=== PATIENT | female | born 1970 | race Two or more races ===

== ENCOUNTER 2017-12-01 04:50 | Emergency (ER) | payer MEDICAID, OTHER ==
[~2017-12-01] VITALS: Ht 154.9 cm; Wt 65.8 kg
[~2017-12-01 04:50] MED LIST: DOXE10CA2 PO
[2017-12-01 05:00] VITALS: BP 133/85
[2017-12-01] MEDS ORDERED: TRAMADOL HCL 50 MG TABLET ONE (05:28)
[2017-12-01] MEDS ORDERED: TRAMADOL HCL 50 MG TABLET PO ONE (05:30)
== END 2017-12-01 07:10 | disposition home or self-care (01) ==
LOC: ER 04:51
DX: S92.511A Displaced fracture of proximal phalanx of right lesser toe(s), initial encounter for closed fracture (principal); W22.8XXA Striking against or struck by other objects, initial encounter; Y93.89 Activity, other specified; Y92.89 Other specified places as the place of occurrence of the external cause; Y99.8 Other external cause status
CPT/HCPCS: 29515; 73630; 99284; A4606; Z7610

== ENCOUNTER 2018-05-23 04:05 | Emergency (ER) | payer OTHER ==
[~2018-05-23] VITALS: Ht 162.6 cm; Wt 60.3 kg
[2018-05-23 04:16] VITALS: BP 122/78
--- NOTE | 2018-05-23 05:00 | NUR ---
CALLED FOR ROOM ASSIGNMENT AGAIN; NOT IN LOBBY. INFORMED "PT IN RESTROOM"
--- NOTE | 2018-05-23 05:56 | NUR ---
STILL NOT IN LOBBY
--- NOTE | 2018-05-23 06:06 | NUR ---
INFORMED BY ADMITTING "PT IS NOT YET BACK IN THE LOBBY; WILL LET YOU KNOW WHEN SHE RETUTRNS"
== END 2018-05-23 06:58 | disposition left against medical advice (07) ==
LOC: ER 04:06
DX: Z53.21 Procedure and treatment not carried out due to patient leaving prior to being seen by health care provider (principal)
CPT/HCPCS: A4606; Z7610

== ENCOUNTER 2020-07-29 20:44 | Emergency (ER) | payer OTHER ==
[~2020-07-29] VITALS: Ht 162.6 cm; Wt 61.2 kg
[2020-07-29 21:27] LABS: BILIRUBIN,URINE NEGATIVE (NEGATIVE); BLOOD, URINE NEGATIVE Ery/uL (NEGATIVE); COLOR,URINE YELLOW (YELLOW); LEUKOCYTE ESTERASE ,URINE NEGATIVE (NEGATIVE); NITRITE, URINE NEGATIVE (NEGATIVE); PROTEIN,URINE NEGATIVE (NEGATIVE); UGLUCOSE NEGATIVE (NEGATIVE); UROBILINOGEN,URINE 0.2 EU/dL (0.2)
--- NOTE | 2020-07-29 21:31 | NUR ---
BIBS FROM HOME TO ER BED 1. AAOX4. NOT IN RESP DISTRESS. AMBULATORY. CAME IN FOR A LEFT FLANK PAIN SINCE YESTERDAY. PAIN IS RATED 8/10 SHARP PRESENT WEHN MOVING AND AGRREVATED BY MOVING. DENIES ANY PAIN OR BURNING WHEN URINATING. DENIES ANY TRAUMA. ORDERS RECEIVED NOTED AND CARRIED OUT. URINE IS COLLECTED AND SENT TO LAB. IV LINE ESTABLISHED ON RFA 22G. BLOOD DRAWN AND GIVEN TO RADIATOR FITTER AT BEDSIDE. PT IS GOING TO CT ON [facility]
[2020-07-29 21:34] LABS: BASOPHILS # (AUTO) 0.1 /CMM (0.0-0.2); BASOPHILS % (AUTO) 1.2 % (0.0-2.0); HEMATOCRIT 37 % (33-45); HEMOGLOBIN 12.4 g/dL (11.5-14.8); LYMPHOCYTES # (AUTO) 1.5 /CMM (0.8-4.8); LYMPHOCYTES % (AUTO) 35.1 % (20.0-44.0); MEAN CORPUSCULAR HGB CONC 33 g/dl (31.0-36.0); MEAN CORPUSCULAR VOLUME 92 fL (82-100); MONOCYTES # (AUTO) 0.5 /CMM (0.1-1.30); MONOCYTES % (AUTO) 12.6 % (2.0-12.0); NEUTROPHILS % (AUTO) 48.1 % (43.0-81.0); PLATELET COUNT (AUTO) 254 /CMM (150-450); RED BLOOD CELL COUNT(AUTO) 4.05 MIL/uL (4.0-5.2); WHITE BLOOD COUNT (AUTO) 4.2 K/uL (4.3-11.0)
[2020-07-29 22:06] LABS: CALCIUM, SERUM 8.5 mg/dL (8.5-10.1)
[2020-07-29 22:13] LABS: ALBUMIN 3.2 g/dL (3.4-5.0); BILIRUBIN,DIRECT 0.1 mg/dL (0.0-0.2); BILIRUBIN,TOTAL 0.2 mg/dL (0.2-1.0); TOTAL PROTEIN, SERUM 7.1 g/dL (6.4-8.2)
[2020-07-29] MEDS ORDERED: KETOROLAC TROMETHAMINE INJ 30 MG/ML VIAL ONE (22:24)
[2020-07-29] MEDS: KETOROLAC TROMETHAMINE INJ 30 MG/ML VIAL IV ONE (22:29)
[2020-07-29] MEDS: IV NS 0.9% 1,000 ML BAG IV ONE (22:29)
--- NOTE | 2020-07-29 22:35 | NUR ---
Patient discharged to home in stable condition. Written and verbal after care instructions given. Patient verbalizes understanding of instruction.IV removed. Catheter intact and site benign. Pressure and 4x4 applied to site. No bleeding noted. Pt ambulatory with a steady gait
[2020-07-29 23:34] VITALS: BP 123/78
== END 2020-07-29 22:37 | disposition home or self-care (01) ==
LOC: ER 20:49
DX: S39.012A Strain of muscle, fascia and tendon of lower back, initial encounter (principal); K59.00 Constipation, unspecified; Z98.890 Other specified postprocedural states; X58.XXXA Exposure to other specified factors, initial encounter; Y93.89 Activity, other specified; Y92.89 Other specified places as the place of occurrence of the external cause; Y99.8 Other external cause status
CPT/HCPCS: 36415; 74176; 80048; 80076; 81001; 83690; 85025; 87086; 96374; 99284; J1885; J7030; 81000-TC

== ENCOUNTER 2021-07-16 18:51 | Emergency (ER) | payer OTHER, MEDICAID ==
[~2021-07-16] VITALS: Ht 162.6 cm; Wt 61.2 kg
--- NOTE | 2021-07-16 19:32 | NUR ---
BIBS C/O "SHARP" R GROIN PAIN AND R FLANK X 3 DAYS. TOOK PRESCRIBED NORCOS WITH NO RELIEF. PT CHANGED INTO A GOWN AND PLACED ON A MONITOR ALL VITALS STABLE.
[2021-07-16] MEDS ORDERED: KETOROLAC TROMETHAMINE 15 MG/ML VIAL ONE (19:48)
[2021-07-16] MEDS ORDERED: ONDANSETRON HCL/PF 4 MG/2 ML VIAL ONE (19:48)
--- NOTE | 2021-07-16 19:52 | NUR ---
BLOOD TAKEN AND SENT TO LAB.
--- NOTE | 2021-07-16 19:53 | NUR ---
URINE COLLECTED AND SENT TO LAB
[2021-07-16 19:59] LABS: BASOPHILS % (AUTO) 0.6 % (0.0-2.0); EOSINOPHILS % (AUTO) 3.8 % (0.0-6.0); HEMATOCRIT 39 % (33-45); HEMOGLOBIN 13.1 g/dL (11.5-14.8); LYMPHOCYTES # (AUTO) 1.5 K/uL (0.8-4.8); LYMPHOCYTES % (AUTO) 37.1 % (20.0-44.0); MEAN CORPUSCULAR HGB CONC 33 g/dl (31.0-36.0); MEAN CORPUSCULAR VOLUME 92 fL (82-100); MONOCYTES # (AUTO) 0.4 K/uL (0.1-1.30); MONOCYTES % (AUTO) 10.5 % (2.0-12.0); NEUTROPHILS # (AUTO) 1.9 K/uL (1.8-8.9); PLATELET COUNT (AUTO) 223 K/uL (150-450); RED BLOOD CELL COUNT(AUTO) 4.25 MIL/uL (4.0-5.2)
[2021-07-16 20:00] LABS: BILIRUBIN,URINE SMALL (NEGATIVE); COLOR,URINE YELLOW (YELLOW); LEUKOCYTE ESTERASE ,URINE NEGATIVE (NEGATIVE); NITRITE, URINE NEGATIVE (NEGATIVE); PH,URINE 5.5 (5.0-8.0); PROTEIN,URINE NEGATIVE (NEGATIVE); UGLUCOSE NEGATIVE (NEGATIVE); UROBILINOGEN,URINE 0.2 EU/dL (0.2)
[2021-07-16] MEDS ORDERED: KETOROLAC TROMETHAMINE INJ 30 MG/ML VIAL IV ONE (20:00)
[2021-07-16] MEDS ORDERED: IV NS 0.9% 1,000 ML BAG IV ONE (20:00)
[2021-07-16] MEDS ORDERED: ONDANSETRON HCL/PF 4 MG/2 ML VIAL IVP ONE (20:00)
--- NOTE | 2021-07-16 20:00 | NUR ---
PT TAKEN TO CT
[2021-07-16 20:09] LABS: BACTERIA,URINE RARE /HPF (None Seen); MUCUS,URINE Few /LPF (None Seen)
--- NOTE | 2021-07-16 20:12 | NUR ---
RETURNED FROM CT
--- NOTE | 2021-07-16 20:56 | NUR ---
CALLED [facility] FOR CXRAY READ
[2021-07-16 21:26] LABS: ALBUMIN 3.8 g/dL (3.4-5.0); BILIRUBIN,DIRECT 0.1 mg/dL (0.0-0.2); BILIRUBIN,TOTAL 0.3 mg/dL (0.2-1.0); CREATININE 0.9 mg/dL (0.6-1.3); POTASSIUM 3.5 mmol/L (3.5-5.1); TOTAL PROTEIN, SERUM 7.6 g/dL (6.4-8.2)
[2021-07-16] MEDS ORDERED: POLY17PO4 PO (21:53)
--- NOTE | 2021-07-16 22:03 | NUR ---
Patient discharged to home in stable condition. Written and verbal after care instructions given. Patient verbalizes understanding of instruction.
[2021-07-16 22:04] VITALS: BP 145/93
== END 2021-07-16 22:04 | disposition home or self-care (01) ==
LOC: ER 18:55
DX: K59.00 Constipation, unspecified (principal); R10.31 Right lower quadrant pain; R91.1 Solitary pulmonary nodule; Z98.890 Other specified postprocedural states; Z79.899 Other long term (current) drug therapy
CPT/HCPCS: 36415; 71045; 74176; 80048; 80076; 81001; 82962; 83690; 85025; 93005; 96361; 96374; 96375; 99285; J1885; J2405; J7030

== ENCOUNTER 2021-09-05 10:20 | Emergency (ER) | payer MEDICAID, OTHER ==
[~2021-09-05] VITALS: Ht 162.6 cm; Wt 61.2 kg
[~2021-09-05 10:20] MED LIST changes: +POLY17PO4 PO
--- NOTE | 2021-09-05 10:22 | NUR ---
BIB FRIEND C/O FLANK PAIN AND DYSURIA, 8/10 ON PAIN SCALE. PT STATED SHE STARTED TO FEEL PAIN 2 WEEKS PRIOR, YESTERDAY IT STARTED TO INCREASE. DENIES NAUSEA AND VOMITING. VITALS ARE WITHIN NORMAL LIMITS BREATHING IS EVEN AND UNLABORED. URIEN WAS COLLECTED AND SNET. PT ATTACHED TO MONITOR. BLANKET WAS PROVIDED FOR COMFORT. DR NORRIS AT BEDSIDE.
[2021-09-05] MEDS ORDERED: IBUPROFEN 600 MG TABLET ONE (10:35)
[2021-09-05 10:55] LABS: BILIRUBIN,URINE NEGATIVE (NEGATIVE); COLOR,URINE YELLOW (YELLOW); LEUKOCYTE ESTERASE ,URINE SMALL (NEGATIVE); NITRITE, URINE NEGATIVE (NEGATIVE); PROTEIN,URINE 30 mg/dl (NEGATIVE); UGLUCOSE NEGATIVE (NEGATIVE); UROBILINOGEN,URINE 0.2 EU/dL (0.2)
[2021-09-05] MEDS ORDERED: IBUPROFEN 600 MG TABLET PO ONE (11:00)
--- NOTE | 2021-09-05 11:05 | NUR ---
DR NORRIS TALKING TO THE PATIENT
[2021-09-05] MEDS ORDERED: NITR100C6 PO (11:06)
[2021-09-05 11:19] LABS: BACTERIA,URINE Many /HPF (None Seen); SQUAMOUS EPITHELIAL CELL,UR Few /HPF (None Seen)
--- NOTE | 2021-09-05 11:34 | NUR ---
PT RESTING COMFORTABLY, VSS
[2021-09-05 12:02] VITALS: BP 131/86
--- NOTE | 2021-09-05 12:02 | NUR ---
Patient discharged to home in stable condition. Written and verbal after care instructions given. Patient verbalizes understanding of instruction.
== END 2021-09-05 12:03 | disposition home or self-care (01) ==
LOC: ER 10:24
DX: N39.0 Urinary tract infection, site not specified (principal); M54.9 Dorsalgia, unspecified; Z79.899 Other long term (current) drug therapy
CPT/HCPCS: 81001; 87086-TC; 87186-TC

== ENCOUNTER 2022-01-12 06:39 | Emergency (ER) | payer OTHER ==
[~2022-01-12] VITALS: Ht 162.6 cm; Wt 61.2 kg
[~2022-01-12 06:39] MED LIST changes: +NITR100C6 PO
[2022-01-12 06:55] VITALS: BP 128/67
--- NOTE | 2022-01-12 06:59 | NUR ---
PT BIBSELF C/O LEFT THUMB PAIN. PT AAOX4 BREATHING EVENLY AND UNLABORED. PT ATTACHED TO MONITOR AND POX. PT GIVEN BLANKET AND CALL LIGHT WITHIN REACH. MD AT BEDSIDE
--- NOTE | 2022-01-12 07:48 | NUR ---
PILOT CAPTAIN AT BEDSIDE
--- NOTE | 2022-01-12 08:35 | NUR ---
Patient discharged to home in stable condition. Written and verbal after care instructions given. Patient verbalizes understanding of instruction.
== END 2022-01-12 08:34 | disposition home or self-care (01) ==
LOC: ER 06:45
DX: S60.012A Contusion of left thumb without damage to nail, initial encounter (principal); Z79.899 Other long term (current) drug therapy; X58.XXXA Exposure to other specified factors, initial encounter; Y93.89 Activity, other specified; Y92.89 Other specified places as the place of occurrence of the external cause; Y99.8 Other external cause status
CPT/HCPCS: 73140-TC

== ENCOUNTER 2022-03-23 06:39 | Emergency (ER) | payer OTHER ==
[~2022-03-23] VITALS: Ht 162.6 cm; Wt 62.1 kg
[2022-03-23 06:52] VITALS: BP 142/97
[2022-03-23] MEDS ORDERED: TRIA60LO8 TP (07:11)
[2022-03-23] MEDS ORDERED: CETI-90 PO (07:11)
[2022-03-23] MEDS ORDERED: cetrizine 10 MG TABLET ONE (07:15)
[2022-03-23] MEDS ORDERED: cetrizine 10 MG TABLET PO ONE (07:30)
== END 2022-03-23 07:18 | disposition home or self-care (01) ==
LOC: ER 06:41
DX: S40.861A Insect bite (nonvenomous) of right upper arm, initial encounter (principal); Z79.899 Other long term (current) drug therapy; W57.XXXA Bitten or stung by nonvenomous insect and other nonvenomous arthropods, initial encounter; Y93.89 Activity, other specified; Y92.89 Other specified places as the place of occurrence of the external cause; Y99.8 Other external cause status

== ENCOUNTER 2022-11-23 12:40 | Emergency (ER) | payer OTHER ==
[~2022-11-23] VITALS: Ht 162.6 cm; Wt 61.2 kg
[~2022-11-23 12:40] MED LIST changes: +CETI-90 PO; +TRIA60LO8 TP
[2022-11-23 13:16] VITALS: BP 149/93
--- NOTE | 2022-11-23 13:16 | NUR ---
RIGHT FOOT PAIN,TRIPPED LAST NIGHT
[2022-11-23] MEDS ORDERED: KETOROLAC TROMETHAMINE INJ 60 MG/2 ML VIAL IM ONE (15:00)
[2022-11-23] MEDS ORDERED: KETOROLAC TROMETHAMINE INJ 30 MG/ML VIAL ONE (15:04)
[2022-11-23] MEDS ORDERED: TYL2T PO (15:10)
--- NOTE | 2022-11-23 15:15 | NUR ---
Patient discharged to home in stable condition. Written and verbal after care instructions given. Patient verbalizes understanding of instruction.
== END 2022-11-23 16:15 | disposition home or self-care (01) ==
LOC: ER 12:50
DX: S90.31XA Contusion of right foot, initial encounter (principal); Z79.899 Other long term (current) drug therapy; W01.0XXA Fall on same level from slipping, tripping and stumbling without subsequent striking against object, initial encounter; Y93.89 Activity, other specified; Y92.9 Unspecified place or not applicable; Y99.8 Other external cause status
CPT/HCPCS: 99283; 96372; 73630; J1885

== ENCOUNTER 2023-01-17 06:13 | Emergency (ER) | payer OTHER ==
[~2023-01-17] VITALS: Ht 162.6 cm; Wt 61.2 kg
[~2023-01-17 06:13] MED LIST changes: +TYL2T PO
[2023-01-17 06:32] VITALS: BP 141/86
--- NOTE | 2023-01-17 06:32 | NUR ---
pt bib d/t possible rt foot infection. states had boil and she popped it. safety measures in place, awaitng to be seen by .
--- NOTE | 2023-01-17 06:34 | NUR ---
pt seen by MD at bedside
[2023-01-17] MEDS ORDERED: KETO10TA2 PO (06:41)
[2023-01-17] MEDS ORDERED: CLIN300C12 PO (06:41)
[2023-01-17] MEDS ORDERED: KETOROLAC TROMETHAMINE INJ 30 MG/ML VIAL ONE (06:44)
[2023-01-17] MEDS: KETOROLAC TROMETHAMINE INJ 30 MG/ML VIAL IM ONE (06:55)
--- NOTE | 2023-01-17 06:55 | NUR ---
MD orders carried out. due meds given as ordered. Patient discharged to home in stable condition. Written and verbal after care instructions given. Patient verbalizes understanding of instruction.
== END 2023-01-17 06:59 | disposition home or self-care (01) ==
LOC: ER 06:13
DX: L03.115 Cellulitis of right lower limb (principal); Z79.899 Other long term (current) drug therapy
CPT/HCPCS: 99283; 96372; J1885

== ENCOUNTER 2024-02-05 06:27 | Emergency (ER) | payer OTHER ==
[~2024-02-05] VITALS: Ht 162.6 cm; Wt 62.1 kg
[~2024-02-05 06:27] MED LIST changes: +CLIN300C12 PO; +KETO10TA2 PO
[2024-02-05] MEDS ORDERED: ACETAMINOPHEN ES 500 MG TABLET ONE (06:44)
[2024-02-05] MEDS: ACETAMINOPHEN ES 500 MG TABLET PO ONE (06:45)
[2024-02-05 07:57] VITALS: BP 142/94; TEMP 98.1; O2SAT 98
== END 2024-02-05 07:57 | disposition home or self-care (01) ==
LOC: ER 06:27
DX: S09.8XXA Other specified injuries of head, initial encounter (principal); M54.2 Cervicalgia; W01.198A Fall on same level from slipping, tripping and stumbling with subsequent striking against other object, initial encounter; Y93.89 Activity, other specified; Y92.098 Other place in other non-institutional residence as the place of occurrence of the external cause; Y99.8 Other external cause status
CPT/HCPCS: 70450-TC; 72125-TC

== ENCOUNTER 2024-04-26 04:28 | Emergency (ER) | payer OTHER ==
[~2024-04-26] VITALS: Ht 160 cm; Wt 65.8 kg
[2024-04-26] MEDS ORDERED: ONDANSETRON 4 MG TAB.RAPDIS ONE (05:15)
[2024-04-26] MEDS ORDERED: IBUPROFEN 600 MG TABLET ONE (05:15)
[2024-04-26] MEDS: IBUPROFEN 600 MG TABLET PO ONE (05:16)
[2024-04-26] MEDS: ONDANSETRON 4 MG TAB.RAPDIS SL ONE (05:16)
[2024-04-26] MEDS ORDERED: ALBUTEROL FS 2.5 MG/0.5 ML VIAL.NEB ONE (05:35)
[2024-04-26 05:36] VITALS: O2SAT 96
[2024-04-26] MEDS: ALBUTEROL FS 2.5 MG/0.5 ML VIAL.NEB NEB ONE (05:41)
[2024-04-26 05:48] VITALS: O2SAT 98
[2024-04-26] MEDS ORDERED: AMOX500C2 PO (07:24)
[2024-04-26] MEDS ORDERED: AZIT1PAC9 PO (07:24)
[2024-04-26 07:39] VITALS: BP 136/74; TEMP 98.2; O2SAT 98
== END 2024-04-26 07:40 | disposition home or self-care (01) ==
LOC: ER 04:43
DX: J06.9 Acute upper respiratory infection, unspecified (principal); Z79.1 Long term (current) use of non-steroidal anti-inflammatories (NSAID); Z79.899 Other long term (current) drug therapy; Z20.822 Contact with and (suspected) exposure to COVID-19
CPT/HCPCS: 99284; 71045; 87426; 87804 ×2; 94640; Q0162

== ENCOUNTER 2025-02-25 10:00 | Emergency (ER) | payer OTHER ==
[~2025-02-25] VITALS: Ht 162.6 cm; Wt 61.2 kg
[~2025-02-25 10:00] MED LIST changes: +AMOX500C2 PO; +AZIT1PAC9 PO
[2025-02-25 10:14] VITALS: BP 144/105; TEMP 98.1; O2SAT 96
[2025-02-25] MEDS ORDERED: IBUP-1955 PO (14:12)
== END 2025-02-25 12:07 | disposition left against medical advice (07) ==
LOC: ER 10:10
DX: S69.80XA Other specified injuries of unspecified wrist, hand and finger(s), initial encounter (principal); S09.8XXA Other specified injuries of head, initial encounter; M18.9 Osteoarthritis of first carpometacarpal joint, unspecified; Z79.899 Other long term (current) drug therapy; Z88.6 Allergy status to analgesic agent; Z98.51 Tubal ligation status; W01.0XXA Fall on same level from slipping, tripping and stumbling without subsequent striking against object, initial encounter; Y93.89 Activity, other specified; Y92.89 Other specified places as the place of occurrence of the external cause; Y99.8 Other external cause status
CPT/HCPCS: 73130-TC